=== PATIENT | female | born 1980 | race African-American/Black ===

== ENCOUNTER 2019-01-17 13:02 | Emergency (ER) | payer OTHER ==
[~2019-01-17] VITALS: Ht 170.2 cm; Wt 72.6 kg
== END 2019-01-17 16:13 | disposition home or self-care (01) ==
LOC: ER 13:02
DX: T65.894A Toxic effect of other specified substances, undetermined, initial encounter (principal); R11.0 Nausea; R42 Dizziness and giddiness; Y92.813 Airplane as the place of occurrence of the external cause